=== PATIENT | female | born 1950 | race Caucasian/White ===

== ENCOUNTER 2024-05-18 21:34 | Emergency (ER) | payer MEDICARE, OTHER, SELFPAY ==
[2024-05-18 21:46] VITALS: BP 182/100
[2024-05-18 22:00] VITALS: BP 144/67
--- NOTE | 2024-05-18 23:48 | ED.GENMED ---
History of Present Illness
General
Chief Complaint: Heart Rate Problem
Source: patient, spouse and previous hospital records (Hospitalization December 2018 robotic hemicolectomy. Postop GI bleeding with episode of PAF postoperatively)
Exam Limitations: none
Time Seen by Provider: 05/18/24 22:55
Nursing documentation reviewed up to this point in time: agreed with
History of Present Illness
History of Present Illness:
This is a 73-year-old woman who has history of hypertension, hyperlipidemia, history of colon cancer status post robotic hemicolectomy December 2018. Postoperatively she suffered a GI bleed requiring 2 units packed red blood cells and also suffered
an episode of PAF, converted spontaneously.
She presents with 2 to 3-day history of intermittent palpitations/intermittent tachycardia that seemed more persistent this afternoon prompting ED visit. No associated symptoms, she denies chest pain, no shortness of breath, no dizziness nor
lightheadedness, no fever nor chills.
She does note several day history of nasal congestion and has been taking sporadic doses of an [id number]-lgs-gzxlirv decongestant as well as sporadic doses of Afrin nasal spray over the past few days.
She also recently began taking an [id number] supplement, relief factor.
She denies alcohol and or drug use. No recent travel. No leg pain or swelling. Weight has been stable.
She complained of palpitations upon arrival to the ED and initial EKG shows atrial fibrillation with rapid ventricular response of 130.
Shortly after arrival palpitations have resolved and repeat EKG shows normal sinus rhythm at 90. She has had no recurrent palpitations.
Her daily medications include atenolol/HCTZ 50/25, losartan 100 mg. She is also maintained on a statin.
Past History
Past History
ED Past Medical History: Arrthythmia (Episode of PAF postoperatively December 2018), Cancer (Colon cancer, hemicolectomy December 2018), HTN, Hypercholesterolemia and Valvular disease (Echocardiogram December 2018 showing normal LV size and function
with EF of 60 to 65%. Mild mitral regurgitation with normal-appearing valves. Trace aortic regurgitation)
ED Past Surgical History: Cholecystectomy (Right hemicolectomy December 2018)
Social History
Tobacco: Non-smoker
Alcohol: Occasional
Drug: None
Personal:
Living: with family
Employment: Retired
Family History
Family History: Other (Noncontributory)
Phy Exam
Physical Exam
Physical Exam:
GENERAL: 73-year-old woman appears somewhat younger than stated age, bright and alert, pleasant, appears in no acute distress. is accompanying.
EYE: anicteric
NECK: Supple, nontender, no meningismus, no significant adenopathy.
ENT: posterior pharynx is clear, oral mucosa is moist. TM clear b/l, nares have mildly boggy pale blue turbinates without rhinorrhea nor mucopus.
CARDIAC: Regular rate and rhythm. no murmur.
LUNGS: Clear breath sounds bilaterally, no acute respiratory distress, no wheezes/rales/rhonchi
ABDOMEN: Soft, nondistended, without focal tenderness, normoactive BS.
NEUROLOGICAL: Alert and oriented x3, no focal neuro deficits. Gait is steady.
SKIN: Warm and dry, normal color, skin intact. No rash.
MUSCULOSKELETAL: No C/C/E. peripheral pulses are full and equal b/l. No palpable tenderness.
PSYCH: Normal and appropriate interaction.
Scores
[id number] Score for Afib Stroke Risk
Age in Years (65=0, 65-74=1, >/=75=2): 65-74
Sex (Female=+1): Female
Congestive Heart Failure History (Yes=+1): No
Hypertension History (Yes=+1): Yes
Stroke/TIA/Thromboembolism History (Yes=+2): No
Vascular Disease History (Yes=+1): No
Diabetes Mellitus (Yes=+1): No
Score: 3
Anticoagulation Recommendations: Recommend anticoagulation (as validated in nonvalvular fib)
Course
Orders/Labs/Results
Orders:
Orders
05/18/24 21:34
ECG [Electrocardiogram (*1)] Urgent
Reason for Study: Tachycardia
05/18/24 21:35
EKG- Treatment ONCE
05/18/24 21:54
Electrocardiogram (*1) Urgent
Reason for Study: Palpitations
EKG- Treatment ONCE
05/18/24 23:43
Complete Blood Count/With Diff Urgent
Comprehensive Metabolic Panel Urgent
Magnesium Urgent
TSH Reflex To Free T4 Urgent
05/19/24 00:32
0.9% Sodium Chloride 1000 ml [Nss] 1,000 ml IV BOLUS
Abnormal Lab Results
05/18/24
23:43
WBC 15.8 H 10^3/uL
(4.8-10.8)
MCH 32.2 H pg
(27.0-31.0)
MPV 12.5 H fL
(7.4-10.4)
Abs Immat Gran (auto) 0.1 H 10^3/uL
(0-0.05)
Absolute Neuts (auto) 9.6 H 10^3/uL
(1.4-6.5)
Absolute Lymphs (auto) 4.6 H 10^3/uL
(1.2-3.4)
Absolute Monos (auto) 1.3 H 10^3/uL
(0.1-0.6)
BUN 28 H mg/dl
(7-17)
Creatinine 1.2 H mg/dL
(0.6-1.0)
Glucose 121 H mg/dl
(70-99)
05/18/24 23:43
05/18/24 23:43
Vital Signs
Initial and Last Documented VS:
Initial Vital Signs
Temp Pulse Resp BP Pulse Ox
98.1 F 128 20 182/100 100
05/18/24 21:46 05/18/24 21:46 05/18/24 21:46 05/18/24 21:46 05/18/24 21:46
Last Documented Vital Signs
Temp Pulse Resp BP Pulse Ox
98.1 F 85 17 144/67 100
05/18/24 21:46 05/18/24 22:00 05/18/24 21:50 05/18/24 22:00 05/18/24 21:46
MDM/Problems Addressed
Differential Diagnosis Includes:
Patient presents with PAF, has spontaneously converted to normal sinus rhythm.
Remains hemodynamically stable and essentially asymptomatic save for note of palpitations during episode of A-fib.
Recent decongestant and Afrin use may be contributing factor to A-fib and recommend she discontinue these.
There is no evidence of bacterial sinusitis on exam. She is noted to have mildly boggy pale blue turbinates which is more consistent with allergic rhinitis.
She has also been taking a supplement, relief factor, which contains reservatrol, omega-3's, Icariin. Unsure if this is a contributing factor or not.
She denies significant alcohol use. No history of drug use.
[id number] score of 3. Recommend initiation of anticoagulant/NOAC. Patient agreeable to initiation of Eliquis.
Will check labs assess for potential electrolyte abnormality, thyroid disorder, anemia.
Will continue monitoring engineer.
It appears patient is chronically maintained on atenolol at 50 mg. Systolic blood pressure in the 130s, I plan to titrate atenolol to 100 mg daily.
Ultimately will require prompt follow-up with cardiology. Patient is a patient of Dr. Nguyễn and patient requests follow-up with CBC.
Chronic conditions affecting care: HTN
*Pulse Oximetry
Patient hypoxic: no
*EKG
Interpretation: abnormal
Comparison EKG: changes noted (A-fib with RVR has replaced normal sinus rhythm December 2018)
Rate: tachycardiac
Rhythm: a-fib
[place]: normal axis
Interval: normal QT interval
QRS Pattern: normal QRS
Ischemia: non-specific ST changes
*Nurseryperson Interpretation
Rate: normal
Interpretation: normal
Rhythm: sinus
*Critical Care Note
Total Time (30-74mins, 75-104mins- exclusive of procedures): Not Applicable
Data Reviewed
Review of Other/Old Records Reveals: Labs, Records, Radiology Studies (Echocardiogram December 2018), Operative Reports (2018) and Discharge Summary (2018)
Source: patient, records and family
Update Note
Update Note:
01:00
Patient remains in normal sinus rhythm.
Remains asymptomatic.
Labs are remarkable for mildly elevated white blood cell count.
Elevated BUN and creatinine 28/1.2 which have trended up from previous available labs 2018. Unsure if this is attributed to recent decongestant use, attributed to recent dxjg-gmp-bpanqea supplement use.
Electrolytes are otherwise within normal limits. Magnesium is normal. TSH is normal.
Recommend she discontinue decongestant, discontinue relief factor supplement.
Will increase atenolol chlorthalidone from 50/25-100/25.
Will initiate Eliquis and patient has been given a 1 week sample.
Recommend prompt follow-up with cardiology. Patient's uses Dr. Nguyễn and this is whom patient wishes to follow-up with.
Discussed importance of staying well-hydrated on a daily basis.
I did initially order IV fluids but patient eager to be discharged to home. IV fluids order has been canceled.
Return precautions discussed.
ED Attending Note
-
Portions of this chart may have been created with voice recognition software.� Occasional wrong word or��sound alike� substitutions may have occurred due to the inherent limitations of voice recognition software.
Discharge Plan
Departure
Patient Disposition: Home (Routine Discharge)
Date of Disposition: 05/19/24
Time of Disposition: 00:56
Patient with high blood pressure during this ER visit?: No
Condition: Good
Discharge Problem:
New onset a-fib
Instructions: Atrial Fibrillation (DC)
Prescriptions:
New
atenolol-chlorthalidone 100-25 mg tablet
1 tab PO DAILY Qty: 30 0RF
Eliquis 5 mg tablet
5 mg PO BID Qty: 60 0RF
No Action
Atenolol/Chlorthalidone
25 mg PO DAILY
Patient Comments:
Takes 1/2 of 50-25 mg tablet
losartan [Cozaar] 100 MG tablet
100 mg PO DAILY
Estradiol Vaginal
VAG
Patient Comments:
uses twice a week
hydrocodone-acetaminophen 1 TABLET tablet
1 - 2 tab PO Q4HPRN PRN (Reason: moderate to severe pain) Qty: 20 0RF
Referrals:
Doug Nguyễn MD [Active] - Call in 1-3 days for appt
Kt Lopez MD [Family Provider] -
Interventions
Interventions:
*Risk Screen - Suicide Last Done: 05/18/24 21:50
*General Assessment Last Done: 05/18/24 22:02
*Neglect/Abuse Screening Last Done: 05/18/24 21:50
ED- Fall Risk Assessment Last Done: 05/18/24 23:35
*ED COVID-19 Vaccine History Last Done: 05/18/24 22:02
ED- Cardiac Assessment Last Done: 05/18/24 23:35
ED- Pulmonary Assessment Last Done: 05/18/24 23:35
Discharge Date and Time
Print Language: MOROCCAN
[2024-05-18 23:52] LABS: % Basophils 0.3 % (0-2); % Eosinophils 1.1 % (0-6); % Immature Granulocytes 0.4 % (0-0.5); % Lymphocytes 29.4 % (20.5-51.1); % Monocytes 8.2 % (1.7-9.3); % Neutrophils 60.6 % (42.2-75.2); Absolute Basophils 0.1 10^3/uL (0-0.2); Absolute Eosinophils 0.2 10^3/uL (0-0.7); Absolute Immature Granulocytes 0.1 10^3/uL (0-0.05); Absolute Lymphocytes 4.6 10^3/uL (1.2-3.4); Absolute Monocytes 1.3 10^3/uL (0.1-0.6); Absolute Neutrophils 9.6 10^3/uL (1.4-6.5); Hematocrit 38.6 % (37.0-47.0); Hemoglobin 13.7 g/dL (12.0-16.0); Mean Corp Hgb Conc. 35.5 g/dL (33.0-37.0); Mean Corpuscular Hgb 32.2 pg (27.0-31.0); Mean Corpuscular Volume 90.6 fL (81.0-99.0); Mean Platelet Volume 12.5 fL (7.4-10.4); Nucleated Red Blood Cells % 0 %; Platelet Count 228 10^3/uL (130-400); Red Blood Cell Count 4.26 10^6/uL (4.20-5.40); Red Cell Dist. Width 11.8 % (11.5-14.5); White Blood Cell Count 15.8 10^3/uL (4.8-10.8)
[2024-05-19 00:03] LABS: ALT (SGPT) 27 U/L (0-35); AST (SGOT) 25 U/L (14-36); Albumin 4.6 g/dl (3.5-5.0); Alkaline Phosphatase 91 U/L (38-126); Blood Urea Nitrogen 28 mg/dl (7-17); Calcium 10.1 mg/dl (8.4-10.2); Carbon Dioxide 24 mmol/L (22-30); Chloride 101 mmol/L (98-107); Glucose 121 mg/dl (70-99); Potassium 3.5 mmol/L (3.5-5.1); Sodium 137 mmol/L (135-145); Total Bilirubin 0.9 mg/dl (0.2-1.3); Total Protein 7.6 g/dl (6.3-8.2); eGFR 48.09
[2024-05-19 00:48] LABS: TSH Reflex To Free T4 1.13 uIU/ml (0.47-4.68)
== END 2024-05-19 01:05 | disposition home or self-care (01) ==
LOC: EMR 21:34
PROVIDERS: EMERGENCY PHYSICIAN Emergency Medicine; FAMILY PHYSICIAN Internal Medicine
DX: I48.91 Unspecified atrial fibrillation (principal); R00.2 Palpitations; I10 Essential (primary) hypertension; E78.00 Pure hypercholesterolemia, unspecified; Z79.899 Other long term (current) drug therapy; Z85.038 Personal history of other malignant neoplasm of large intestine; Z90.49 Acquired absence of other specified parts of digestive tract
CPT/HCPCS: 99284; 96360; 80053; 83735; 84443; 85025; 93005

== ENCOUNTER → 2024-06-09 10:18 | Outpatient (REF) | payer MEDICARE, OTHER, SELFPAY | LOC: HWRCS 10:18 | PROVIDERS: ATTENDING PHYSICIAN Internal Medicine; FAMILY PHYSICIAN Internal Medicine | DX: I48.0 Paroxysmal atrial fibrillation (principal); R94.31 Abnormal electrocardiogram [ECG] [EKG]; I10 Essential (primary) hypertension | CPT/HCPCS: 93306 ==

== ENCOUNTER → 2024-06-14 08:06 | Outpatient (REF) | payer MEDICARE, OTHER, SELFPAY | LOC: HWRCS 08:06 | PROVIDERS: ATTENDING PHYSICIAN Internal Medicine; FAMILY PHYSICIAN Internal Medicine | DX: I48.0 Paroxysmal atrial fibrillation (principal); R94.31 Abnormal electrocardiogram [ECG] [EKG]; I10 Essential (primary) hypertension | CPT/HCPCS: 78452; 93017; A9500; J2785 ==